=== PATIENT | female | born 1975 ===

== ENCOUNTER 2016-09-25 06:28 | Emergency (ER) | payer OTHER ==
[2016-09-25 06:33] VITALS: BP 131/65; PULSE 97; RESP 16; TEMP 98
[2016-09-25] MEDS ORDERED: HYDROmorphone 1 MG/ML 1 ML SYRINGE IM STA (06:48)
[2016-09-25] MEDS ORDERED: KETOROLAC 60 MG/2 ML VIAL IM STA (06:49)
[2016-09-25] MEDS ORDERED: predniSONE 20 MG TAB PO STA (06:49)
[2016-09-25] MEDS ORDERED: ONDANSETRON ODT 4 MG TAB PO STA (06:49)
--- NOTE | 2016-09-25 06:55 | ED ---
General Adult HPI - General Chief complaint: Back Pain/Injury Stated complaint: Back pain Time Seen by Provider: 09/25/16 06:30 Source: patient, RN notes reviewed Mode of arrival: ambulatory Limitations: no limitations - History of Present Illness Initial comments: This is a 41-year-old female presents emergency Department complaining of left lower back pain. Patient states she feltthe pain after she was moving some furniture. Patient denies any radiation of the pain patient denies any numbness weakness. Patient denies any incontinence of urine or retention of urine. patient denies any dysuria hematuria urinary frequency. Patient denies any fever or chills.patient states pressing on 1 specific area in the sacroiliac joint causes her pain. - Related Data Previous Rx's Medication Instructions Recorded Hydrocodone/Acetaminophen [[place] 1 each PO Q4HR PRN #20 tab 09/25/16 5-325] predniSONE 40 mg PO DAILY #8 tab 09/25/16 Allergies Allergy/AdvReac Type Severity Reaction Status Date / Time sulfamethoxazole Allergy Swelling Verified 09/25/16 06:34 [From Bactrim] trimethoprim [From Bactrim] Allergy Swelling Verified 09/25/16 06:34 tramadol AdvReac Nausea & Verified 09/25/16 06:34 Vomiting Review of Systems ROS Statement: Those systems with pertinent positive or pertinent negative responses have been documented in the HPI. ROS Other: All systems not noted in ROS Statement are negative. Past Medical History Past Medical History: No Reported History History of Any Multi-Drug Resistant Organisms: None Reported Past Surgical History: Tubal Ligation Past Psychological History: No Psychological Hx Reported Smoking Status: Never smoker Past Alcohol Use History: None Reported Past Drug Use History: None Reported General Exam - General Exam Comments Initial Comments: GENERAL: Patient is well-developed and well-nourished. Patient is nontoxic and well- hydrated and is in moderate distress. ENT: Neck is soft and supple. No significant lymphadenopathy is noted. Oropharynx is clear. Moist mucous membranes. Neck has full range of motion without eliciting any pain. EYES: The sclera were anicteric and conjunctiva were pink and moist. Extraocular movements were intact and pupils were equal round and reactive to light. Eyelids were unremarkable. PULMONARY: Unlabored respirations. Good breath sounds bilaterally. No audible rales rhonchi or wheezing was noted. CARDIOVASCULAR: There is a regular rate and rhythm without any murmurs gallops or rubs. ABDOMEN: Soft and nontender with normal bowel sounds. No palpable organomegaly was noted. There is no palpable pulsatile mass. SKIN: Skin is clear with no lesions or rashes and otherwise unremarkable. NEUROLOGIC: Patient is alert and oriented x3. Cranial nerves II through XII are grossly intact. Motor and sensory are also intact. Normal speech, volume and content. Symmetrical smile. straight leg test was negative bilaterally MUSCULOSKELETAL: Normal extremities with adequate strength and full range of motion. No lower extremity swelling or edema. No calf tenderness. patient has tenderness in the left sacroiliac joint. LYMPHATICS: No significant lymphadenopathy is noted PSYCHIATRIC: Normal psychiatric evaluation. Limitations: no limitations Course Vital Signs 09/25/16 06:30 Temperature 98.0 F Pulse Rate 97 Respiratory 16 Rate Blood Pressure 131/65 O2 Sat by Pulse 98 Oximetry Medical Decision Making - Medical Decision Making patient received Dilaudid and Zofran and Toradol and prednisone in the emergency department. Patient had no radicular pain and no associated symptoms other than that point tenderness. Disposition Clinical Impression: Sacroiliac inflammation Disposition: HOME SELF-CARE Condition: Good Instructions: Acute Low Back Pain (ED) Prescriptions: Hydrocodone/Acetaminophen [[place] 5-325] 1 each PO Q4HR PRN #20 tab PRN Reason: Pain predniSONE 40 mg PO DAILY #8 tab Referrals: None,Stated [Primary Care Provider] - 1-2 days Time of Disposition: 06:54
== END 2016-09-25 07:30 | disposition home or self-care (01) ==
LOC: EC 06:28
DX: M46.1 Sacroiliitis, not elsewhere classified (principal); Z88.2 Allergy status to sulfonamides; Z88.5 Allergy status to narcotic agent; X50.9XXA Other and unspecified overexertion or strenuous movements or postures, initial encounter
CPT/HCPCS: 99283; 96372; J1885; J7512